=== PATIENT | male | born 1935 | race Hispanic/Latino ===

== ENCOUNTER 2018-11-01 12:48 | Outpatient (CLI) | payer MEDICARE ==
--- NOTE | 2018-11-04 11:42 | Mammography Report ---
BONE DEXA CLINICAL: Postmenopausal TECHNIQUE: 2 site bone DEXA performed on an Hologic scanner. FINDINGS: The average BMD of the lumbar spine L1-L4 is 0.953g/cm squared with a T score of -1.3 and a Z score o f 0. Moderate levoscoliosis. The average total BMD of the left hip is 0.792 g/cm squared with a T score of -1.6and a Z score of -0 .4. IMPRESSION: 1. WHO classification: Osteopenia with increased fracture risk based on spine measurements. 2. WHO classification: Osteopenia with increased fracture risk based on left hip measurements. RECOMMENDATION: Clinical correlation and routine screening. Definitions: BMD equal bone mineral density T score = BMD related to peak bone mass of young adult (Smyer expressed an standard deviation) Z score = age-matched BMD expressed in SD World health organization (WHO) diagnostic criteria Normal T score greater than equal to 1 standard deviation Osteopenia T score between -1 and -2.4 standard deviation Osteoporosis T score -2.5 standard deviation or below. Note: BMD is not the only risk factor for fracture; also consider factors such as the patient's age, risk of falling, previous osteoporotic fracture, family history of osteoporotic fractures, current sm oker and low body weight. Z scores are not calculated if greater than 80 years of age. Signer Name: Devante Abarca MD Signed: 11/04/2018 11:37 AM Workstation Name: [id number]
== END 2018-11-01 12:49 | disposition home or self-care (01) ==
LOC: SPVWC 12:48
PROVIDERS: ATTEND Internal Medicine
DX: M40.00 Postural kyphosis, site unspecified (principal); M85.88 Other specified disorders of bone density and structure, other site
CPT/HCPCS: 77080